=== PATIENT | female | born 1980 | race African-American/Black ===

== ENCOUNTER 2021-06-27 23:05 | Emergency (ER) | payer SELFPAY ==
[~2021-06-27] VITALS: Ht 170.2 cm; Wt 65.9 kg
[2021-06-28] MEDS ORDERED: HYDROmorphone 2 MG/ML VIAL IVP ONE
[2021-06-28] MEDS ORDERED: SODIUM CHLORIDE 0.9% 1,000 ML IV ONE ×2 (01:00)
[2021-06-28] MEDS ORDERED: KETAMINE HCL 50 MG/ML 10 ML VIAL IVP ONE (01:00)
[2021-06-28 03:11] VITALS: BP 152/94
[2021-06-28] MEDS ORDERED: KETOROLAC TROMETHAMINE 30 MG/ML VIAL IVP ONE (03:45)
[2021-06-28] MEDS ORDERED: PERTUSS(ACELL),DIPH,TET VAC/PF 0.5 ML SYRINGE IM. ONE (03:45)
[2021-06-28] MEDS ORDERED: ONDANSETRON HCL 4 MG/2 ML VIAL IVP ONE ×2 (05:15)
[2021-06-28] MEDS ORDERED: ONDANSETRON HCL 4 MG TABLET PO ONE (07:15)
== END 2021-06-28 08:17 | disposition home or self-care (01) ==
LOC: EMS 23:07
DX: S82.852A Displaced trimalleolar fracture of left lower leg, initial encounter for closed fracture (principal); W17.89XA Other fall from one level to another, initial encounter; Y93.89 Activity, other specified; Y92.89 Other specified places as the place of occurrence of the external cause; Y99.8 Other external cause status
CPT/HCPCS: 27840; 73562; 73590; 73610 ×2; 73630; 81025; 90471; 90715; 96361; 96374; 96375; 99152; 99153; 99285; J1170; J1885; J2405; J3490; J7030; Q0162; 29515

== ENCOUNTER 2021-06-28 08:30 | Emergency (ER) | payer MEDICAID ==
[~2021-06-28] VITALS: Ht 162.6 cm; Wt 54.0 kg
[2021-06-28 09:05] VITALS: BP 154/106
[2021-06-28] MEDS ORDERED: IBUPROFEN 600 MG TABLET PO ONE (15:30)
== END 2021-06-28 16:06 | disposition home or self-care (01) ==
LOC: EMS 08:30
DX: Z00.00 Encounter for general adult medical examination without abnormal findings (principal)
CPT/HCPCS: 99283; Z7502